=== PATIENT | female | born 1990 | race Caucasian/White ===

== ENCOUNTER 2021-05-06 18:15 | Emergency (ER) | payer MEDICAID ==
--- NOTE | 2021-05-06 18:41 | Emergency Department Report ---
ED ENT HPI - General Chief complaint: Dental/Oral Stated complaint: TOOTHACHE PAIN Time Seen by Provider: 05/06/21 18:32 Source: patient Mode of arrival: Ambulatory Limitations: No Limitations - History of Present Illness Initial comments: Patient is a 30-year-old female presents emergency room with complaints of right lower dental pain for the last 3 days. She reports that she saw dentist 4 months ago and was advised that she needs tooth extractions but never followed back up. She states it is causing her to have a headache. She denies any fever , nausea, vomiting, chills, difficulty swallowing, difficulty breathing. No allergies to medicines. Last menstrual cycle 4 days ago. - Related Data Previous Rx's Medication Instructions Recorded Last Taken Type Chlorhexidine Mouthwash [Peridex] 15 ml MM BID #1 bottle 05/06/21 Unknown Rx Naproxen 375 mg PO BID PRN #14 tablet 05/06/21 Unknown Rx Penicillin V Potassium 500 mg PO QID 7 Days #28 tablet 05/06/21 Unknown Rx Allergies Allergy/AdvReac Type Severity Reaction Status Date / Time No Known Allergies Allergy Unverified 05/06/21 18:20 ED Dental HPI - General Chief complaint: Dental/Oral Stated complaint: TOOTHACHE PAIN Time Seen by Provider: 05/06/21 18:32 Source: patient Mode of arrival: Ambulatory Limitations: No Limitations - Related Data Previous Rx's Medication Instructions Recorded Last Taken Type Chlorhexidine Mouthwash [Peridex] 15 ml MM BID #1 bottle 05/06/21 Unknown Rx Naproxen 375 mg PO BID PRN #14 tablet 05/06/21 Unknown Rx Penicillin V Potassium 500 mg PO QID 7 Days #28 tablet 05/06/21 Unknown Rx Allergies Allergy/AdvReac Type Severity Reaction Status Date / Time No Known Allergies Allergy Unverified 05/06/21 18:20 ED Review of Systems ROS: Stated complaint: TOOTHACHE PAIN Other details as noted in HPI Comment: All other systems reviewed and negative ED Past Medical Hx - Medications Home Medications: Home Medications Medication Instructions Recorded Confirmed Last Taken Type Chlorhexidine Mouthwash [Peridex] 15 ml MM BID #1 bottle 05/06/21 Unknown Rx Naproxen 375 mg PO BID PRN #14 tablet 05/06/21 Unknown Rx Penicillin V Potassium 500 mg PO QID 7 Days #28 tablet 05/06/21 Unknown Rx ED Physical Exam - General Limitations: No Limitations General appearance: alert, in no apparent distress - Head Head exam: Present: atraumatic, normocephalic - Eye Eye exam: Present: normal appearance - ENT ENT exam: Present: mucous membranes moist, other (dental caries and dental decay present to the right lower gumline, no induration, no facial edema, uvula is midline, no uvular edema or deviation, no trismus, no tongue elevation, no muffled voice, no submandibular edema) - Neurological Exam Neurological exam: Present: alert, oriented X3 - Psychiatric Psychiatric exam: Present: normal affect, normal mood - Skin Skin exam: Present: warm, dry, intact ED Course Vital Signs 05/06/21 18:20 Temperature 98.4 F Pulse Rate 94 H Respiratory 20 Rate Blood Pressure 144/98 [Right] O2 Sat by Pulse 98 Oximetry ED Medical Decision Making - Medical Decision Making Patient is a 30-year-old female presents emergency room with complaints of right lower dental pain for the last 3 days. She reports that she saw dentist 4 months ago and was advised that she needs tooth extractions but never followed back up. She states it is causing her to have a headache. She denies any fever, nausea, vomiting, chills, difficulty swallowing, difficulty breathing. No allergies to medicines. Last menstrual cycle 4 days ago. Vitals are stable. On exam: dental caries and dental decay present to the right lower gumline, no induration, no facial edema, uvula is midline, no uvular edema or deviation, no trismus, no tongue elevation, no muffled voice, no submandibular edema. No clinical signs of significant dental abscess, facial cellulitis, facial abscess, or Ludwigs at this time. Patient given prescription for medication and given list of community dental clinics. advised patient Please take medication as prescribed. Follow-up with a dentist. Gargle with warm salt water. May use Anbesol [id number]. Return to emergency room for any new or worsening symptoms. Critical care attestation.: If time is entered above; I have spent that time in minutes in the direct care of this critically ill patient, excluding procedure time. ED Disposition Clinical Impression: Dental caries, Dentalgia Disposition: 01 HOME / SELF CARE / HOMELESS Is pt being admited?: No Does the pt Need Aspirin: No Condition: Stable Additional Instructions: Please take medication as prescribed. Follow-up with a dentist. Gargle with warm salt water. May use Anbesol [id number]. Return to emergency room for any new or worsening symptoms. Prescriptions: Naproxen 375 mg PO BID PRN #14 tablet PRN Reason: pain Penicillin V Potassium 500 mg PO QID 7 Days #28 tablet Chlorhexidine Mouthwash [Peridex] 15 ml MM BID #1 bottle Referrals: [facility] [Outside] - 3-5 Days Time of Disposition: 18:40 Print Language: WELSH
[2021-05-06 20:35] VITALS: BP 121/78
== END 2021-05-06 20:35 | disposition home or self-care (01) ==
LOC: ED 18:15
DX: K02.9 Dental caries, unspecified (principal); K08.89 Other specified disorders of teeth and supporting structures
CPT/HCPCS: 99282